=== PATIENT | female | born 1990 | race Caucasian/White ===

== ENCOUNTER 2020-01-30 13:06 | Outpatient (CLI) | payer MEDICAID | END 2020-01-30 13:07 | disposition home or self-care (01) | LOC: COV 13:06 | PROVIDERS: ATTEND Family Medicine | DX: J02.9 Acute pharyngitis, unspecified (principal); Z20.828 Contact with and (suspected) exposure to other viral communicable diseases ==

== ENCOUNTER 2021-03-06 14:55 | Outpatient (CLI) | payer MEDICAID | END 2021-03-06 14:56 | disposition home or self-care (01) | LOC: COV 14:55 | PROVIDERS: ATTEND Family Medicine | DX: Z20.822 Contact with and (suspected) exposure to COVID-19 (principal) ==